=== PATIENT | female | born 1970 | race Two or more races ===

== ENCOUNTER 2022-03-20 08:12 | Emergency (ER) | payer MEDICAID, OTHER ==
[~2022-03-20] VITALS: Ht 160 cm; Wt 63.5 kg
[2022-03-20 09:11] VITALS: BP 174/86
== END 2022-03-20 11:41 | disposition home or self-care (01) ==
LOC: ER 08:12
DX: T16.1XXA Foreign body in right ear, initial encounter (principal); X58.XXXA Exposure to other specified factors, initial encounter; Y93.89 Activity, other specified; Y92.89 Other specified places as the place of occurrence of the external cause; Y99.8 Other external cause status

== ENCOUNTER 2024-07-26 19:12 | Emergency (ER) | payer OTHER ==
[~2024-07-26] VITALS: Ht 144.8 cm; Wt 60.1 kg
[~2024-07-26 19:12] MED LIST: ACET500T58 PO; ALBU108A5 IN; BENZ100C19 PO; LORA-483 GT
[2024-07-27] VITALS: BP 151/65; PULSE 61; RESP 20; TEMP 97.5; O2SAT 99
[2024-07-27] MEDS ORDERED: CEFD300C2 PO (00:30)
[2024-07-27] MEDS ORDERED: METH4PAK PO (00:30)
== END 2024-07-27 00:38 | disposition home or self-care (01) ==
LOC: ER 19:12
DX: J01.00 Acute maxillary sinusitis, unspecified (principal); Z79.899 Other long term (current) drug therapy

== ENCOUNTER 2024-10-04 06:14 | Inpatient (IN) | payer OTHER ==
[~2024-10-04] VITALS: Ht 152.4 cm; Wt 62.5 kg
[~2024-10-04 06:14] MED LIST changes: +CEFD300C2 PO; +METH4PAK PO
--- NOTE | 2024-10-04 06:50 | ED.PDOC ---
GI ASSESSMENT HPI Comments 53Y F with PMHx gallstones presents to ED for chief complaint epigastric abd pain x4-5days. Pt states pain begins at rt flank and now radiates to abd. Pt experienced n/v yesterday. Pain began hours after eating. Pt states her urine is orange and eye sclera have become mildly yellow. Pt denies alcohol, illicit drug, and tobacco use. No known allergies. Chief Complaint: Abdominal Pain Time Seen by MD: 06:24 Reviewed Notes: Medications, Allergies Allergies: Coded Allergies: NO KNOWN ALLERGIES (Unverified , 03/20/22) Home Meds Active Scripts Methylprednisolone (Medrol Dosepak) 4 Mg Rayray, 4 MG PO UD for 6 Days, #21 TAB UAD Prov:ASMITA ORTIZ [facility] 07/27/24 Cefdinir (Cefdinir) 300 Mg Cap, 1 CAP PO BID for 7 Days, #14 CAP Prov:ANGELASMITA [facility] 07/27/24 Albuterol Sulfate (Albuterol Sulfate Hfa) 108 Mcg/Act Aer, 108 MCG IN Q4HP PRN, #1 AER Prov:SAMARA VIVEROS [facility] 02/25/23 Benzonatate (Tessalon Perles) 100 Mg Cap, 1 CAP PO TID, #21 CAP Prov:SAMARA VIVEROS [facility] 02/25/23 Loratadine (CLARITIN TABLET) 10 Mg Tb, 10 MG GT DAILY for 15 Days, #15 TAB Prov:SAMARA VIVEROS [facility] 02/25/23 Acetaminophen (Acetaminophen) 500 Mg Tab, 500 MG PO Q4HP PRN, #30 TAB Prov:SAMARA VIVEROS [facility] 02/25/23 Information Source: Patient Mode of Arrival: Ambulatory Timing: Days Duration: Since onset Quality: Sharp Vomitus: Watery Stool: Brown Severity: Mild Recent: None Recent Hx of: None Pain Location: Epigastric Modifying Factors: Nothing Associated sign and symptoms: Nausea, Vomiting, Abdominal Pain Past Medical History PAST MEDICAL HISTORY: Gallstones Surgical History: Denies all surgeries CRIMINALIST History: No Pertinent CRIMINALIST History Family History Family History: Reviewed,noncontributory to illness, Unknown Social History Smoker: Non-Smoker Alcohol: Denies ETOH Use Drugs: Denies Drug Use Lives In: Home Constitutional: denies: chills, diaphoresis, fatigue, fever, malaise, sweats, weakness, others EENTM: denies: blurred vision, double vision, ear bleeding, ear discharge, ear drainage, ear pain, ear ringing, eye pain, eye redness, hearing loss, mouth pain, mouth swelling, nasal discharge, nose bleeding, nose congestion, nose pain, photophobia, tearing, throat pain, throat swelling, voice changes, others Respiratory: denies: cough, hemoptysis, orthopnea, SOB at rest, shortness of breath, SOB with excertion, stridor, wheezing, others Cardiovascular: denies: chest pain, dizzy spells, diaphoresis, Dyspnea on exertion, edema, irregular heart beat, left arm pain, lightheadedness, palpitations, PND, syncope, others Gastrointestinal: reports: abdominal pain, nausea, vomiting; denies: abdomen distended, blood streaked bowels, constipated, diarrhea, dysphagia, difficulty swallowing, hematemesis, melena, poor appetite, poor fluid intake, rectal bleeding, rectal pain, others Genitourinary: reports: flank pain, others (orange urine); denies: abnormal vagina bleeding, burning, dyspareunia, dysuria, frequency, hematuria, incontinence, pain, , vagina discharge, urgency Neurological: denies: dizziness, fainting, headache, left sided numbness, left sided weakness, numbness, paresthesia, pre-existing deficit, right sided numbness, right sided weakness, seizure, speech problems, tingling, tremors, weakness, others Musculoskeletal: denies: back pain, gout, joint pain, joint swelling, muscle pain, muscle stiffness, neck pain, others Integumetry: denies: bruises, change in color, change in hair/nails, dryness, laceration, lesions, lumps, rash, wounds, others Allergic/Immunocompromised: denies: Difficulty Healing, Frequent Infections, Hives, Itching, others Hematologic/Lymphatic: denies: anemia, blood clots, easy bleeding, easy bruising, swollen glands, others Endocrine: denies: excessive hunger, excessive sweating, excessive thirst, excessive urination, flushing, intolerance to cold, intolerance to heat, unexplained weight gain, unexplained weight loss, others Psychiatric: denies: anxiety, bipolar disorder, depression, hopeless, panic disorder, schizophrenia, sleepless, suicidal, others All Other Systems: Reviewed and Negative Physical Exam General Appearance: No Apparent Distress, Normal HEENT: Pharynx Normal, Scleral Icterus (L), Scleral Icterus (R), TMs Normal Neck: Full Range of Motion, Non-Tender, Normal, Normal Inspection Respiratory: Chest Non-Tender, Lungs Clear, No Accessory Muscle Use, No Respiratory Distress, Normal Breath Sounds Cardiovascular: No Edema, No JVD, No Murmur, No Gallop, Normal Peripheral Pulses, Regular Rate/Rhythm Breast Exam: Deferred Gastrointestinal: No Organomegaly, Non Tender, No Pulsatile Mass, Normal Bowel Sounds, Soft Genitalia: Deferred Pelvic: Deferred Rectal: Deferred Extremities: No calf tenderness, Normal capillary refill, Normal inspection, Normal range of motion, Non-tender, No pedal edema Musculoskeletal : Apperance: Normal Neurologic: Alert, long term acute care registered nurse II-XII nml as Tested, No Motor Deficits, Normal Affect, Normal Mood, No Sensory Deficits Cerebellar Function: Normal Reflexes: Normal Skin: Dry, Normal Color, Warm Lymphatic: No Adenopathy Was a procedure done? Was a procedure done?: No GI differential Dx Differential Diagnosis: Cholangitis, Cholecystitis, Pancreatitis, Mass, Other (choledocholithiasis, biliary obstruction,) X-Ray, Labs, Meds, VS Vital Signs Date Time Temp Pulse Resp B/P (MAP) Pulse Ox O2 Delivery O2 Flow Rate FiO2 10/04/24 07:49 60 16 99 Room Air* 0 21 10/04/24 07:45 97.7 60 16 141/71 (94) 99 97.7 10/04/24 06:25 98.7 65 18 145/84 (104) 96 Lab Test 10/04/24 06:53 10/04/24 06:27 Range/Units White Blood Count 4.7 4.4-10.8 10^3/uL Red Blood Count 5.09 4.0-5.20 10^6/uL Hemoglobin 14.7 12.2-16.2 g/dL Hematocrit 42.9 36.0-46.0 % Mean Corpuscular Volume 84.3 80.0-100.0 fL Mean Corpuscular Hemoglobin 28.9 28.0-32.0 pg Mean Corpuscular Hemoglobin Concent 34.3 32.0-36.0 g/dL Red Cell Distribution Width 13.6 11.8-14.3 % Platelet Count 239 140-450 10^3/uL Mean Platelet Volume 9.3 6.9-10.8 fL Neutrophils (%) (Auto) 66.4 37.0-80.0 % Lymphocytes (%) (Auto) 25.5 10.0-50.0 % Monocytes (%) (Auto) 6.5 0.0-12.0 % Eosinophils (%) (Auto) 1.2 0.0-7.0 % Basophils (%) (Auto) 0.4 0.0-2.0 % Neutrophils # (Auto) 3.1 1.6-8.6 10 ^3/uL Lymphocytes # (Auto) 1.2 0.4-5.4 10 ^3/uL Monocytes # (Auto) 0.3 0-1.3 10 ^3/uL Eosinophils # (Auto) 0.1 0-0.8 10 ^3/uL Basophils # (Auto) 0 0-0.2 10 ^3/uL Nucleated Red Blood Cells 0.1 % Sodium Level 139 136-145 mmol/L Potassium Level 3.7 3.5-5.1 mmol/L Chloride Level 104 98-107 mmol/L Carbon Dioxide Level 26 20-31 mmol/L Anion Gap 9 5-15 Blood Urea Nitrogen 13 9-23 mg/dL Creatinine 1.02 0.550-1.02 mg/dL Glomerular Filtration Rate Calc 66 >90 mL/min BUN/Creatinine Ratio 12.7 10.0-20.0 Serum Glucose 111 H 74-106 mg/dL Calcium Level 10.5 H 8.7-10.4 mg/dL Total Bilirubin 3.1 H 0.2-1.0 mg/dL Aspartate Amino Transferase (AST) 324 H 13-40 U/L Alanine Aminotransferase (ALT) 923 H 7-40 U/L Alkaline Phosphatase 247 H 46-116 U/L Total Protein 8.2 5.7-8.2 g/dL Albumin 5.1 H 3.2-4.8 g/dL Lipase 278 H 12-53 U/L Beta HCG, Quantitative < 1.5 L 1.5-4.2 mIU/mL Urine Color [place] H Yellow Urine Clarity Ex.turbid Clear Urine pH 5.5 5.0-9.0 Urine Specific [place] 1.016 1.001-1.035 Urine Protein Trace H Negative Urine Ketones 1+ H Negative Urine Blood Negative Negative /uL Urine Nitrite Negative Negative Urine Bilirubin 1+ H Negative Urine Urobilinogen Normal Negative mg/dL Urine Leukocyte Esterase 2+ Negative /uL Urine RBC None seen 0 - 4 /hpf Urine WBC None seen 0 - 5 /hpf Urine Squamous Epithelial Cells Few <5 /hpf Urine Bacteria None seen None Seen /hpf Urine Glucose Normal Normal mg/dL [facility] [id number] [id number] Ph: [phone] DIAGNOSTIC IMAGING Diagnostic Imaging Report : [id number] Signed PATIENT: ANNAMARIA VALDEZACCT: [id number] UNIT: [id number] : 1970 LOC: ER ROOM / BED: / AGE / SEX: 53 / F ADM STATUS: REG ER SERVICE 6 ORDERING PHYSICIAN: WSETHA DELATORRE MD PROCEDURE(s): GBUS - GALLBLADDER REASON: ruq pain ORDER NUMBER(s): [id number], ACCESSION NUMBER(s): [id number] INDICATION: Pain. TECHNIQUE: Multiple real-time sonographic images of the abdomen were obtained. COMPARISON: None FINDINGS: The liver is increased in echogenicity. The liver measures 14.5 cm. No intrahepatic biliary ductal dilatation is noted. The gallbladder wall measures 0.2 cm and is unremarkable. Multiple gallstones. The common duct measures 0.6 cm and is unremarkable. No pericholecystic fluid is noted. Negative sonographic delacruz's sign. The right kidney measures 12.1 cm. No hydronephrosis. There are right renal cysts, the largest measuring 3.8 cm. The left kidney measures 11.1 cm. There are left renal cysts, the largest measuring 2.3 cm. No hydronephrosis. The pancreas is not well visualized due to obscuration from bowel gas. The visualized portions of the IVC and aorta are grossly unremarkable. IMPRESSION: 1. Multiple gallstones. No sonographic evidence of acute cholecystitis. 2. Hepatic steatosis. 3. Bilateral renal cysts. ATED BY: VANNESA BARRAGAN MD DICTATED DATE/TIME: 10/04/24807 SIGNED BY: VANNESA BARRAGAN MD SIGNED DATE/TIME: 10/04/24807 CC: Time of 1ST Reevaluation: 06:54 Reevaluation 1ST: Unchanged Time of 2ND Reevaluation: 08:54 Reevaluation 2ND: Improved Consultation: Other (hospitalist) Patient Education/Counseling: Diagnosis, Treatment, Prognosis, Need For Follow Up Family Education/Counseling: No Family Present Additional Information pt is jaundiced, with elevated LFTs, bili, and mild lipase elevation. us does not show cholecystitis, nor dilated ducts, but she will need a MRCP and admission to assess for possibly a stone that might have passed. i spoke to Dr Sotomayor and Marianne Ball Departure 1 Departure Time of Disposition: 08:58 Impression: Primary Impression: Cholelithiasis Qualified Codes: K80.20 - Calculus of gallbladder without cholecystitis wit hout obstruction Additional Impressions: Jaundice UTI (urinary tract infection) Qualified Codes: N30.00 - Acute cystitis without hematuria Transaminitis Disposition: ADMITTED INPATIENT Admit to: Med Surg Condition: Stable Critical Care Note Critical Care Time?: Yes (55 min-critical care time only) Critical care comment: due to real concerns for pt's condition deteriorating, the patient's care required my highest level of attention and prepareness to intervene. i assessed this patient, formulated a plan of care, communicated with medical personnel,reveiwed data and results,andconversed with senior staff consultant, reassessed the patient's condition and response to treatments. [facility] interactions and does not include any procedures Stability Stability form required: No I personally scribed for SWETHA DELATORRE MD (NAILA) on 10/04/24 at 06:50. Electronically submitted by Marcela Cotter ([employer]). I personally scribed for SWETHA DELATORRE MD (NAILA) on 10/04/24 at 06:50. Electronically submitted by Marcela Cotter ([employer]). I personally scribed for SWETHA DELATORRE MD (NAILA) on 10/04/24 at 08:18. Electronically submitted by Marcela Cotter ([employer]). SWETHA DELATORRE MD Oct 04, 2024 06:50
[2024-10-04 07:15] LABS: Basophils # (auto) 0 10 ^3/uL (0-0.2); Basophils % (auto) 0.4 % (0.0-2.0); Eosinophils # (auto) 0.1 10 ^3/uL (0-0.8); Eosinophils % (auto) 1.2 % (0.0-7.0); Hematocrit 42.9 % (36.0-46.0); Hemoglobin 14.7 g/dL (12.2-16.2); Lymphocytes # (auto) 1.2 10 ^3/uL (0.4-5.4); Lymphocytes % (auto) 25.5 % (10.0-50.0); Mean Corpuscular Hemoglobin 28.9 pg (28.0-32.0); Mean Corpuscular Hgb Conc. 34.3 g/dL (32.0-36.0); Mean Corpuscular Volume 84.3 fL (80.0-100.0); Monocytes # (auto) 0.3 10 ^3/uL (0-1.3); Monocytes % (auto) 6.5 % (0.0-12.0); Neutrophils # (auto) 3.1 10 ^3/uL (1.6-8.6); Neutrophils % (auto) 66.4 % (37.0-80.0); Nucleated Red Blood Cells % 0.1 %; Platelet Count (auto) 239 10^3/uL (140-450); Red Blood Cells 5.09 10^6/uL (4.0-5.20); Red Cell Distribution Width 13.6 % (11.8-14.3); White Blood Cell 4.7 10^3/uL (4.4-10.8)
[2024-10-04 07:32] LABS: Alanine Aminotransferase 923 U/L (7-40); Albumin 5.1 g/dL (3.2-4.8); Alkaline Phosphatase 247 U/L (46-116); Anion Gap 9 (5-15); Aspartate Aminotransferase 324 U/L (13-40); BUN/Creatinine Ratio 12.7 (10.0-20.0); Bilirubin, Total 3.1 mg/dL (0.2-1.0); Blood Urea Nitrogen 13 mg/dL (9-23); Calcium 10.5 mg/dL (8.7-10.4); Carbon Dioxide 26 mmol/L (20-31); Chloride 104 mmol/L (98-107); Glucose 111 mg/dL (74-106); Lipase 278 U/L (12-53); Potassium 3.7 mmol/L (3.5-5.1); Sodium 139 mmol/L (136-145); Total Protein 8.2 g/dL (5.7-8.2)
[2024-10-04 07:49] VITALS: PULSE 60; RESP 16; O2SAT 99
[2024-10-04 07:58] LABS: Urine Bacteria None Seen /hpf (None Seen); Urine WBC None Seen /hpf (0 - 5)
--- NOTE | 2024-10-04 08:11 | DVH ---
INDICATION: Pain. TECHNIQUE: Multiple real-time sonographic images of the abdomen were obtained. COMPARISON: None FINDINGS: The liver is increased in echogenicity. The liver measures 14.5 cm. No intrahepatic biliar y ductal dilatation is noted. The gallbladder wall measures 0.2 cm and is unremarkable. Multiple gallstones. The common duct adarsh sures 0.6 cm and is unremarkable. No pericholecystic fluid is noted. Negative sonographic delacruz's s ign. The right kidney measures 12.1 cm. No hydronephrosis. There are right renal cysts, the largest measu ring 3.8 cm. The left kidney measures 11.1 cm. There are left renal cysts, the largest measuring 2.3 cm. No hydronephrosis. The pancreas is not well visualized due to obscuration from bowel gas. The visualized portions of the IVC and aorta are grossly unremarkable. IMPRESSION: 1. Multiple gallstones. No sonographic evidence of acute cholecystitis. 2. Hepatic steatosis. 3. Bilateral renal cysts.
[2024-10-04 08:16] LABS: Urine Blood Negative /uL (Negative); Urine Clarity Ex.Turbid (Clear); Urine Color Orange (Yellow); Urine Protein, UAD TRACE (Negative); Urine Specific Gravity 1.016 (1.001-1.035); Urine Urobilinogen Normal (Negative); Urine pH 5.5 (5.0-9.0)
[2024-10-04 09:05] VITALS: PULSE 53; RESP 20; O2SAT 96
[2024-10-04] MEDS: cefTRIAXone 1GM/50ML D5W 50 ML IV ONE (09:46)
--- NOTE | 2024-10-04 10:40 | DVH ---
CHEST RADIOGRAPH Indication:sob Technique: Single frontal view of the chest was obtained COMPARISON: None FINDINGS: Lines and Tubes: None Lungs: Clear Pleura: No effusion. No pneumothorax. Cardiomediastinal contours: Unremarkable Bones: Unremarkable IMPRESSION: No acute disease.
[2024-10-04] MEDS: SODIUM CHLORIDE 0.9% 1,000 ML IV SCH (11:30)
[2024-10-04] MEDS ORDERED: HYDROcodone-ACET 5/325MG TAB PO PRN (11:30)
[2024-10-04] MEDS ORDERED: MORPHINE SULFATE INJ 2 MG/ml SYRG IV PRN (11:30)
--- NOTE | 2024-10-04 11:30 | DVHHP2 ---
Admitting Diagnosis: Abd pain History of Present Illness 53 y/o female patient with h/o gallstones presents with c/o epigastric pain for the past 4-5 days. Patient also c/o nausea and vomiting. She also reports ye llowing of her eyes. While in the emergency department the patient was evaluated by the provider, As per provider: Labs, vital signs, and imagining monitored. Patient will be admitted for further evaluation and treatment. I discussed admission with the patient/family and is in agreement to treatment plan. Allergies: Coded Allergies: NO KNOWN ALLERGIES (Unverified , 03/20/22) Home Meds Active Scripts Methylprednisolone (Medrol Dosepak) 4 Mg Rayray, 4 MG PO UD for 6 Days, #21 TAB UAD Prov:ASMITA ORTIZ [facility] 07/27/24 Cefdinir (Cefdinir) 300 Mg Cap, 1 CAP PO BID for 7 Days, #14 CAP Prov:ASMITA ORTIZ [facility] 07/27/24 Albuterol Sulfate (Albuterol Sulfate Hfa) 108 Mcg/Act Aer, 108 MCG IN Q4HP PRN, #1 AER Prov:SAMARA VIVEROS [facility] 02/25/23 Benzonatate (Tessalon Perles) 100 Mg Cap, 1 CAP PO TID, #21 CAP Prov:SAMARA VIVEROS [facility] 02/25/23 Loratadine (CLARITIN TABLET) 10 Mg Tb, 10 MG GT DAILY for 15 Days, #15 TAB Prov:SAMARA VIVEROS [facility] 02/25/23 Acetaminophen (Acetaminophen) 500 Mg Tab, 500 MG PO Q4HP PRN, #30 TAB Prov:SAMARA VIVEROS [facility] 02/25/23 Reported Medications Lisinopril (Lisinopril) 20 Mg Tab, 1 TAB PO DAILY 10/04/24 Current Medications Current Medications Medications (Trade) Dose Ordered Sig/Omid Route PRN Reason Start Time Stop Time Status Last Admin Sodium Chloride 1,000 ml @ 60 mls/hr [id number] IV 10/04/24 11:30 Acetaminophen/ Hydrocodone Bitart ([place] 5/325MG Tab) 1 tab Q4HP PRN PO MODERATE PAIN (4-6 PAIN SCALE) 10/04/24 11:30 Enoxaparin Sodium (Lovenox) 40 mg DAILY SC 10/05/24 10:00 Morphine Sulfate 2 mg Q4HPRN PRN IV SEVERE PAIN (7-10 PAIN SCALE) 10/04/24 11:30 Pantoprazole Sodium (Protonix) 40 mg DAILY IV 10/04/24 11:45 10/04/24 11:47 Hydralazine HCl (Apresoline Injection) 10 mg Q6HP PRN IV SBP>150 10/04/24 11:45 Ondansetron HCl (Zofran) 4 mg Q4HP PRN IV NAUSEA / VOMITING 10/04/24 11:45 Lisinopril (Zestril Tablet) 20 mg DAILY PO 10/05/24 10:00 Review of Systems Constitutional: denies chills, denies fever, denies malaise Eyes: denies eye pain, denies vision change ENT: denies ear pain, denies headache, denies nasal congestion, denies painful swallowing, denies voice change Cardiovascular: denies chest pain, denies edema, denies orthopnea, denies palpitations, denies paroxysmal nocturnal dyspnea Respiratory: denies cough, denies shortness of breath Gastrointestinal: denies constipation, denies diarrhea, denies nausea, denies vomiting Genitourinary: denies dysuria, denies frequent urination, denies urethral discharge Musculoskeletal: denies back pain, denies joint pain, denies muscle pain Skin: denies bruising, denies itching, denies rash Neurological: denies focal weakness, denies headache, denies sensory changes Psychiatric: denies anxiety, denies depression Endocrine: denies polydipsia, denies polyuria Hematologic/Lymphatic: denies easy bleeding, denies easy bruising, denies enlarged lymph nodes Allergic/Immunologic: denies allergy, denies hives Vital Signs Vital Signs Date Time Temp Pulse Resp B/P (MAP) Pulse Ox O2 Delivery O2 Flow Rate FiO2 10/04/24 16:56 97.9 55 16 145/71 (95) 96 97.9 10/04/24 09:05 Room Air* 0 21 Physical Exam General Appearance: alert, no distress HEENT: EOMI, PERRLA, normal external inspect of ears, no icterus, no nasal drainage Neck: no carotid bruit, no jugular venous distention (JVD), no lymphadenopathy Chest: normal thorax Respiratory: clear to auscultation, normal air movement Cardiovascular: regular rate and rhythm, no diastolic murmur, no jugular venous distention (JVD), no rub, no systolic murmur Abdominal: soft, no hepatomegaly, no mass, no splenomegaly, no tenderness Genitourinary: grossly normal external Musculoskeletal: no joint tenderness, no swelling Extremities: normal pulses, no calf tenderness, no clubbing, no cyanosis, no edema Skin: no bruising, no jaundice, no rash Neurological: alert, No focal deficit Results Labs Test 10/04/24 06:53 10/04/24 06:27 Range/Units White Blood Count 4.7 4.4-10.8 10^3/uL Red Blood Count 5.09 4.0-5.20 10^6/uL Hemoglobin 14.7 12.2-16.2 g/dL Hematocrit 42.9 36.0-46.0 % Mean Corpuscular Volume 84.3 80.0-100.0 fL Mean Corpuscular Hemoglobin 28.9 28.0-32.0 pg Mean Corpuscular Hemoglobin Concent 34.3 32.0-36.0 g/dL Red Cell Distribution Width 13.6 11.8-14.3 % Platelet Count 239 140-450 10^3/uL Mean Platelet Volume 9.3 6.9-10.8 fL Neutrophils (%) (Auto) 66.4 37.0-80.0 % Lymphocytes (%) (Auto) 25.5 10.0-50.0 % Monocytes (%) (Auto) 6.5 0.0-12.0 % Eosinophils (%) (Auto) 1.2 0.0-7.0 % Basophils (%) (Auto) 0.4 0.0-2.0 % Neutrophils # (Auto) 3.1 1.6-8.6 10 ^3/uL Lymphocytes # (Auto) 1.2 0.4-5.4 10 ^3/uL Monocytes # (Auto) 0.3 0-1.3 10 ^3/uL Eosinophils # (Auto) 0.1 0-0.8 10 ^3/uL Basophils # (Auto) 0 0-0.2 10 ^3/uL Nucleated Red Blood Cells 0.1 % Sodium Level 139 136-145 mmol/L Potassium Level 3.7 3.5-5.1 mmol/L Chloride Level 104 98-107 mmol/L Carbon Dioxide Level 26 20-31 mmol/L Anion Gap 9 5-15 Blood Urea Nitrogen 13 9-23 mg/dL Creatinine 1.02 0.550-1.02 mg/dL Glomerular Filtration Rate Calc 66 >90 mL/min BUN/Creatinine Ratio 12.7 10.0-20.0 Serum Glucose 111 H 74-106 mg/dL Calcium Level 10.5 H 8.7-10.4 mg/dL Total Bilirubin 3.1 H 0.2-1.0 mg/dL Aspartate Amino Transferase (AST) 324 H 13-40 U/L Alanine Aminotransferase (ALT) 923 H 7-40 U/L Alkaline Phosphatase 247 H 46-116 U/L Total Protein 8.2 5.7-8.2 g/dL Albumin 5.1 H 3.2-4.8 g/dL Lipase 278 H 12-53 U/L Beta HCG, Quantitative < 1.5 L 1.5-4.2 mIU/mL Urine Color [place] H Yellow Urine Clarity Ex.turbid Clear Urine pH 5.5 5.0-9.0 Urine Specific [place] 1.016 1.001-1.035 Urine Protein Trace H Negative Urine Ketones 1+ H Negative Urine Blood Negative Negative /uL Urine Nitrite Negative Negative Urine Bilirubin 1+ H Negative Urine Urobilinogen Normal Negative mg/dL Urine Leukocyte Esterase 2+ Negative /uL Urine RBC None seen 0 - 4 /hpf Urine WBC None seen 0 - 5 /hpf Urine Squamous Epithelial Cells Few <5 /hpf Urine Bacteria None seen None Seen /hpf Urine Glucose Normal Normal mg/dL Plan 1. Epigastric pain Monitor, GI consult, IV fluids 2. Jaundice Monitor 3. Elevated liver enzymes Monitor, daily labs 4. Gallstones Monitor, surgical consult, clear liquid diet, MRCP 5. Benign essential HTN Monitor, antihypertensives Plan discussed with: Patient, Other KONRAD PALM NP Oct 04, 2024 11:30
[2024-10-04] MEDS ORDERED: LISI20TA56 PO (11:34)
[2024-10-04] MEDS ORDERED: hydrALAZINE HCL 20 MG/ML VL IV PRN (11:45)
[2024-10-04] MEDS ORDERED: ONDANSETRON HCL 4 MG/2 ML VIAL IV PRN (11:45)
[2024-10-04] MEDS: PANTOPRAZOLE 40 MG/10 ML VIAL INJ IV SCH (11:47)
--- NOTE | 2024-10-04 15:00 | DVH ---
MRI Abdomen, MRCP without IV Contrast Exam Date: 10/04/2024 01:42 PM Comparison: Ultrasound dated 10/04/2024 History: elevated liver enzymes Technique: Multisequence multiplanar MRI images were obtained of the abomen. MRCP including 3D SPACE, Radial 2D slabs and SPACE 3D MIP images Findings: Liver: The liver is normal in size without focal lesions. Normal liver contour. Numerous mostly subc entimeter hepatic cysts. Spleen: Unremarkable. Pancreas: The pancreas is normal in appearance without focal lesions. Gallbladder and ducts: Cholelithiasis. No intra or extrahepatic biliary duct dilation. 0.4 cm fillin g defect in the distal common bile duct suggestive of a stone. The pancreatic duct is within normal limits. Adrenal glands: Unremarkable. Kidneys: Normal enhancement without suspicious lesions or hydronephrosis. Numerous bilateral renal cy sts. Visualized bowel: Grossly unremarkable. Vasculature: Unremarkable. Lymphadenopathy: No evidence for lymphadenopathy. Ascites: Absent. Musculoskeletal: Bone marrow signal is normal. IMPRESSION: Cholelithiasis without secondary signs of cholecystitis. 0.4 cm stone in the distal common bile duct. Recommend further evaluation with ERCP.
--- NOTE | 2024-10-04 15:50 | DVHINCON2 ---
Date of service: Oct 04, 2024 Allergies: Coded Allergies: NO KNOWN ALLERGIES (Unverified , 03/20/22) Home Meds Active Scripts Methylprednisolone (Medrol Dosepak) 4 Mg Rayray, 4 MG PO UD for 6 Days, #21 TAB UAD Prov:ASMITA ORTIZ TECHNICAL INSTRUCTOR COURSE DEVELOPER 07/27/24 Cefdinir (Cefdinir) 300 Mg Cap, 1 CAP PO BID for 7 Days, #14 CAP Prov:ASMITA ORTIZ [facility] 07/27/24 Albuterol Sulfate (Albuterol Sulfate Hfa) 108 Mcg/Act Aer, 108 MCG IN Q4HP PRN, #1 AER Prov:SAMARA VIVEROS PAC 02/25/23 Benzonatate (Tessalon Perles) 100 Mg Cap, 1 CAP PO TID, #21 CAP Prov:SAMARA VIVEROS [facility] 02/25/23 Loratadine (CLARITIN TABLET) 10 Mg Tb, 10 MG GT DAILY for 15 Days, #15 TAB Prov:SAMARA VIVEROS [facility] 02/25/23 Acetaminophen (Acetaminophen) 500 Mg Tab, 500 MG PO Q4HP PRN, #30 TAB Prov:SAMARA VIVEROS [facility] 02/25/23 Reported Medications Lisinopril (Lisinopril) 20 Mg Tab, 1 TAB PO DAILY 10/04/24 Current Medications Current Medications Medications (Trade) Dose Ordered Sig/Omid Route PRN Reason Start Time Stop Time Status Last Admin Sodium Chloride 1,000 ml @ 60 mls/hr [id number] IV 10/04/24 11:30 Acetaminophen/ Hydrocodone Bitart ([place] 5/325MG Tab) 1 tab Q4HP PRN PO MODERATE PAIN (4-6 PAIN SCALE) 10/04/24 11:30 Enoxaparin Sodium (Lovenox) 40 mg DAILY SC 10/05/24 10:00 Morphine Sulfate 2 mg Q4HPRN PRN IV SEVERE PAIN (7-10 PAIN SCALE) 10/04/24 11:30 Pantoprazole Sodium (Protonix) 40 mg DAILY IV 10/04/24 11:45 10/04/24 11:47 Hydralazine HCl (Apresoline Injection) 10 mg Q6HP PRN IV SBP>150 10/04/24 11:45 Ondansetron HCl (Zofran) 4 mg Q4HP PRN IV NAUSEA / VOMITING 10/04/24 11:45 Lisinopril (Zestril Tablet) 20 mg DAILY PO 10/05/24 10:00 Vital Signs Vital Signs Date Time Temp Pulse Resp B/P (MAP) Pulse Ox O2 Delivery O2 Flow Rate FiO2 10/04/24 12:00 60 10/04/24 12:00 17 122/73 (89) 96 10/04/24 09:05 Room Air* 0 21 10/04/24 07:45 97.7 97.7 Labs/Diagnostic Data Labs Test 10/04/24 06:53 10/04/24 06:27 Range/Units White Blood Count 4.7 4.4-10.8 10^3/uL Red Blood Count 5.09 4.0-5.20 10^6/uL Hemoglobin 14.7 12.2-16.2 g/dL Hematocrit 42.9 36.0-46.0 % Mean Corpuscular Volume 84.3 80.0-100.0 fL Mean Corpuscular Hemoglobin 28.9 28.0-32.0 pg Mean Corpuscular Hemoglobin Concent 34.3 32.0-36.0 g/dL Red Cell Distribution Width 13.6 11.8-14.3 % Platelet Count 239 140-450 10^3/uL Mean Platelet Volume 9.3 6.9-10.8 fL Neutrophils (%) (Auto) 66.4 37.0-80.0 % Lymphocytes (%) (Auto) 25.5 10.0-50.0 % Monocytes (%) (Auto) 6.5 0.0-12.0 % Eosinophils (%) (Auto) 1.2 0.0-7.0 % Basophils (%) (Auto) 0.4 0.0-2.0 % Neutrophils # (Auto) 3.1 1.6-8.6 10 ^3/uL Lymphocytes # (Auto) 1.2 0.4-5.4 10 ^3/uL Monocytes # (Auto) 0.3 0-1.3 10 ^3/uL Eosinophils # (Auto) 0.1 0-0.8 10 ^3/uL Basophils # (Auto) 0 0-0.2 10 ^3/uL Nucleated Red Blood Cells 0.1 % Sodium Level 139 136-145 mmol/L Potassium Level 3.7 3.5-5.1 mmol/L Chloride Level 104 98-107 mmol/L Carbon Dioxide Level 26 20-31 mmol/L Anion Gap 9 5-15 Blood Urea Nitrogen 13 9-23 mg/dL Creatinine 1.02 0.550-1.02 mg/dL Glomerular Filtration Rate Calc 66 >90 mL/min BUN/Creatinine Ratio 12.7 10.0-20.0 Serum Glucose 111 H 74-106 mg/dL Calcium Level 10.5 H 8.7-10.4 mg/dL Total Bilirubin 3.1 H 0.2-1.0 mg/dL Aspartate Amino Transferase (AST) 324 H 13-40 U/L Alanine Aminotransferase (ALT) 923 H 7-40 U/L Alkaline Phosphatase 247 H 46-116 U/L Total Protein 8.2 5.7-8.2 g/dL Albumin 5.1 H 3.2-4.8 g/dL Lipase 278 H 12-53 U/L Beta HCG, Quantitative < 1.5 L 1.5-4.2 mIU/mL Urine Color [place] H Yellow Urine Clarity Ex.turbid Clear Urine pH 5.5 5.0-9.0 Urine Specific [place] 1.016 1.001-1.035 Urine Protein Trace H Negative Urine Ketones 1+ H Negative Urine Blood Negative Negative /uL Urine Nitrite Negative Negative Urine Bilirubin 1+ H Negative Urine Urobilinogen Normal Negative mg/dL Urine Leukocyte Esterase 2+ Negative /uL Urine RBC None seen 0 - 4 /hpf Urine WBC None seen 0 - 5 /hpf Urine Squamous Epithelial Cells Few <5 /hpf Urine Bacteria None seen None Seen /hpf Urine Glucose Normal Normal mg/dL Assessment [id number] R/O AC CHOLECYSTITIS LFT ELEVATED MRCP CBD STONE CONSIDER ERCP AT HIGHER LEVEL OF CARE LAP/OPEN AMADO BASED ON ONGOING EVAL INDICATED Plan discussed with: Patient EVGENY KERNS MD Oct 04, 2024 15:50
--- NOTE | 2024-10-04 19:28 | DVHINCON2 ---
Date of service: Oct 04, 2024 Referring Physician Marianne Ball Reason for Consultation Elevated liver enzymes History of Present Illness 53Y F with PMHx gallstones presents to ED for chief complaint epigastric abd pain x4-5days. Pt states pain begins at rt flank and now radiates to abd. Pt experienced n/v yesterday. Pain began hours after eating. Pt states her urine is orange and eye sclera have become mildly yellow. Pt denies alcohol, illicit drug, and tobacco use. Patient had an MRI which showed gallstones without evidence of cholecystitis how ever there is a suspected 4 mm CBD stone Past Medical History Hypertension Gallstones Allergies: Coded Allergies: NO KNOWN ALLERGIES (Unverified , 03/20/22) Home Meds Active Scripts Methylprednisolone (Medrol Dosepak) 4 Mg Rayray, 4 MG PO UD for 6 Days, #21 TAB UAD Prov:ASMITA ORTIZ RECEIVING SPECIALIST 07/27/24 Cefdinir (Cefdinir) 300 Mg Cap, 1 CAP PO BID for 7 Days, #14 CAP Prov:ASMITA ORTIZ RECEIVING SPECIALIST 07/27/24 Albuterol Sulfate (Albuterol Sulfate Hfa) 108 Mcg/Act Aer, 108 MCG IN Q4HP PRN, #1 AER Prov:SAMARA VIVEROS PAC 02/25/23 Benzonatate (Tessalon Perles) 100 Mg Cap, 1 CAP PO TID, #21 CAP Prov:SAMARA VIVEROS PAC 02/25/23 Loratadine (CLARITIN TABLET) 10 Mg Tb, 10 MG GT DAILY for 15 Days, #15 TAB Prov:SAMARA VIVEROS [facility] 02/25/23 Acetaminophen (Acetaminophen) 500 Mg Tab, 500 MG PO Q4HP PRN, #30 TAB Prov:SAMARA VIVEROS [facility] 02/25/23 Reported Medications Lisinopril (Lisinopril) 20 Mg Tab, 1 TAB PO DAILY 10/04/24 Current Medications Current Medications Medications (Trade) Dose Ordered Sig/Omid Route PRN Reason Start Time Stop Time Status Last Admin Sodium Chloride 1,000 ml @ 60 mls/hr [id number] IV 10/04/24 11:30 Acetaminophen/ Hydrocodone Bitart ([place] 5/325MG Tab) 1 tab Q4HP PRN PO MODERATE PAIN (4-6 PAIN SCALE) 10/04/24 11:30 Enoxaparin Sodium (Lovenox) 40 mg DAILY SC 10/05/24 10:00 Morphine Sulfate 2 mg Q4HPRN PRN IV SEVERE PAIN (7-10 PAIN SCALE) 10/04/24 11:30 Pantoprazole Sodium (Protonix) 40 mg DAILY IV 10/04/24 11:45 10/04/24 11:47 Hydralazine HCl (Apresoline Injection) 10 mg Q6HP PRN IV SBP>150 10/04/24 11:45 Ondansetron HCl (Zofran) 4 mg Q4HP PRN IV NAUSEA / VOMITING 10/04/24 11:45 Lisinopril (Zestril Tablet) 20 mg DAILY PO 10/05/24 10:00 Vital Signs Vital Signs Date Time Temp Pulse Resp B/P (MAP) Pulse Ox O2 Delivery O2 Flow Rate FiO2 10/04/24 19:00 61 16 140/73 (95) 97 10/04/24 16:56 97.9 97.9 10/04/24 09:05 Room Air* 0 21 Physical Exam Hemodynamically stable Full PE deferred Labs/Diagnostic Data Labs Test 10/04/24 06:53 10/04/24 06:27 Range/Units White Blood Count 4.7 4.4-10.8 10^3/uL Red Blood Count 5.09 4.0-5.20 10^6/uL Hemoglobin 14.7 12.2-16.2 g/dL Hematocrit 42.9 36.0-46.0 % Mean Corpuscular Volume 84.3 80.0-100.0 fL Mean Corpuscular Hemoglobin 28.9 28.0-32.0 pg Mean Corpuscular Hemoglobin Concent 34.3 32.0-36.0 g/dL Red Cell Distribution Width 13.6 11.8-14.3 % Platelet Count 239 140-450 10^3/uL Mean Platelet Volume 9.3 6.9-10.8 fL Neutrophils (%) (Auto) 66.4 37.0-80.0 % Lymphocytes (%) (Auto) 25.5 10.0-50.0 % Monocytes (%) (Auto) 6.5 0.0-12.0 % Eosinophils (%) (Auto) 1.2 0.0-7.0 % Basophils (%) (Auto) 0.4 0.0-2.0 % Neutrophils # (Auto) 3.1 1.6-8.6 10 ^3/uL Lymphocytes # (Auto) 1.2 0.4-5.4 10 ^3/uL Monocytes # (Auto) 0.3 0-1.3 10 ^3/uL Eosinophils # (Auto) 0.1 0-0.8 10 ^3/uL Basophils # (Auto) 0 0-0.2 10 ^3/uL Nucleated Red Blood Cells 0.1 % Sodium Level 139 136-145 mmol/L Potassium Level 3.7 3.5-5.1 mmol/L Chloride Level 104 98-107 mmol/L Carbon Dioxide Level 26 20-31 mmol/L Anion Gap 9 5-15 Blood Urea Nitrogen 13 9-23 mg/dL Creatinine 1.02 0.550-1.02 mg/dL Glomerular Filtration Rate Calc 66 >90 mL/min BUN/Creatinine Ratio 12.7 10.0-20.0 Serum Glucose 111 H 74-106 mg/dL Calcium Level 10.5 H 8.7-10.4 mg/dL Total Bilirubin 3.1 H 0.2-1.0 mg/dL Aspartate Amino Transferase (AST) 324 H 13-40 U/L Alanine Aminotransferase (ALT) 923 H 7-40 U/L Alkaline Phosphatase 247 H 46-116 U/L Total Protein 8.2 5.7-8.2 g/dL Albumin 5.1 H 3.2-4.8 g/dL Lipase 278 H 12-53 U/L Beta HCG, Quantitative < 1.5 L 1.5-4.2 mIU/mL Urine Color [place] H Yellow Urine Clarity Ex.turbid Clear Urine pH 5.5 5.0-9.0 Urine Specific [place] 1.016 1.001-1.035 Urine Protein Trace H Negative Urine Ketones 1+ H Negative Urine Blood Negative Negative /uL Urine Nitrite Negative Negative Urine Bilirubin 1+ H Negative Urine Urobilinogen Normal Negative mg/dL Urine Leukocyte Esterase 2+ Negative /uL Urine RBC None seen 0 - 4 /hpf Urine WBC None seen 0 - 5 /hpf Urine Squamous Epithelial Cells Few <5 /hpf Urine Bacteria None seen None Seen /hpf Urine Glucose Normal Normal mg/dL IMPRESSION: 1. Multiple gallstones. No sonographic evidence of acute cholecystitis. 2. Hepatic steatosis. 3. Bilateral renal cysts. Problems(with codes): (1) Choledocholithiasis (2) Cholelithiasis (3) Jaundice (4) UTI (urinary tract infection) (5) Transaminitis Plan/Recommendation Plan Suspected cholelithiasis with choledocholithiasis and biliary colic Surgical consult appreciated Clear liquid diet Monitor labs Referral to higher level of care for ERCP Plan discussed with: Other (ER Nurse) LISA KERNS MD Oct 04, 2024 19:28
[2024-10-04 21:00] VITALS: BP 143/70; PULSE 56; RESP 18; TEMP 98; O2SAT 94
[2024-10-04 22:05] VITALS: BP 143/70; PULSE 56; RESP 18; TEMP 98; O2SAT 94
--- NOTE | 2024-10-04 22:20 | DVHINCON2 ---
DATE OF CONSULTATION: 10/04/2024 HISTORY OF PRESENT ILLNESS: This patient is 53 years old, coming in with right upper quadrant pain, but now feeling much better. No nausea, vomiting. No constipation, diarrhea. No hematemesis, melena. No bleeding per rectum. PAST MEDICAL HISTORY: Hypertension. No diabetes. PAST SURGICAL HISTORY: Nothing significant. PHYSICAL EXAMINATION: VITAL SIGNS: Afebrile, stable signs. HEENT: With no evidence of pallor, cyanosis, or jaundice. NECK: Supple, nontender with no thyromegaly, lymphadenopathy. CHEST AND LUNGS: Clear. HEART: Within normal limits. ABDOMEN: Soft, minimally tender. No rebound. EXTREMITIES: Unremarkable. NEUROLOGIC: Intact. CLINICAL IMPRESSION: Rule out acute cholecystitis. Liver enzymes are elevated. CBD stones are present. PLAN: Will be to consider a preoperative ERCP and higher level of care. Following that, she can be considered for laparoscopic, possible open cholecystectomy. Benefits, risks discussed and a consent obtained based upon her ongoing evaluation. MD JUANITA Bo/EUN/BOB TID: [id number] RECEIPT: [id number] cc: Flash Beavers MD
[2024-10-05 00:56] VITALS: BP 117/84; PULSE 53; RESP 19; TEMP 98.1; O2SAT 97
[2024-10-05 05:00] VITALS: BP 129/72; PULSE 56; RESP 18; TEMP 98.1; O2SAT 97
[2024-10-05 09:00] VITALS: BP 131/68; PULSE 55; RESP 16; TEMP 98.4; O2SAT 95
[2024-10-05] MEDS: ENOXAPARIN SOD 40 MG/0.4 ML SYRINGE SC SCH (09:13)
[2024-10-05] MEDS: LISINOPRIL 20 MG TAB PO SCH (09:13)
--- NOTE | 2024-10-05 12:44 | DVHPN2 ---
Progress Note - Dictate Date Seen: Oct 05, 2024 Medical Necessity Reason Pt with a Central, PICC or Fol: No vital signs Vital Sign Date Time Temp Pulse Resp B/P (MAP) Pulse Ox O2 Delivery O2 Flow Rate FiO2 10/05/24 09:13 131/68 10/05/24 09:00 98.4 55 16 95 98.4 10/05/24 07:50 Room Air* 0 21 Total Intake and Output 10/04/24 10/04/24 10/05/24 15:00 23:00 07:00 Intake Total 50 ml 350 ml Balance 50 ml 350 ml medications Current Medications Medications Dose Ordered Sig/Omid Route Start Time Stop Time Status Last Admin Dose Admin Sodium Chloride 1,000 ml @ 60 mls/hr [id number] IV 10/04/24 11:30 10/05/24 05:49 60 MLS/HR Acetaminophen/ Hydrocodone Bitart 1 tab Q4HP PRN PO 10/04/24 11:30 Enoxaparin Sodium 40 mg DAILY SC 10/05/24 10:00 10/05/24 09:13 40 MG Morphine Sulfate 2 mg Q4HPRN PRN IV 10/04/24 11:30 Pantoprazole Sodium 40 mg DAILY IV 10/04/24 11:45 10/05/24 09:12 40 MG Hydralazine HCl 10 mg Q6HP PRN IV 10/04/24 11:45 Ondansetron HCl 4 mg Q4HP PRN IV 10/04/24 11:45 Lisinopril 20 mg DAILY PO 10/05/24 10:00 10/05/24 09:13 20 MG objective General Appearance: alert, no distress HEENT: EOMI, PERRLA, normal external inspect of ears, no icterus, no nasal drainage Neck: no carotid bruit, no jugular venous distention (JVD), no lymphadenopathy Chest: normal thorax Respiratory: clear to auscultation, normal air movement Cardiovascular: regular rate and rhythm, no diastolic murmur, no jugular venous distention (JVD), no rub, no systolic murmur Abdominal: soft, no hepatomegaly, no mass, no splenomegaly, no tenderness Genitourinary: grossly normal external Musculoskeletal: no joint tenderness, no swelling Extremities: normal pulses, no calf tenderness, no clubbing, no cyanosis, no edema Skin: no bruising, no jaundice, no rash Neurological: alert, No focal deficit laboratory and microbiology Laboratory Tests 10/04/24 06:53 Test 10/04/24 06:53 Range/Units Serum Glucose 111 H 74-106 mg/dL Problem List 1. Epigastric pain Monitor, GI consult, IV fluids 2. Jaundice Monitor 3. Elevated liver enzymes Monitor, daily labs 4. Gallstones Monitor, surgical consult, clear liquid diet, MRCP 5. Benign essential HTN Monitor, antihypertensives Assessment/Plan Subjective Patient is awake and alert. Objective Patient was admitted on 10/04/2024 for abdominal pain. Patient was found to be jaundiced and her liver enzymes were elevated. Patient's only medical history is high blood pressure and she takes lisinopril. MRCP was done and it does show an approximate 4 mm stone in her common bile duct. ERCP is unable to be done at this facility. Patient may also need a possible left laparoscopic cholecystectomy. Patient was seen by GI as well as general surgery. They are recommending higher level of care in order to do these procedures. Patient wants to AMA and is going to wait one more day before deciding if they will leave AMA tomorrow. Plan Continue current treatment. Pending decision for AMA tomorrow. Plan discussed with: Patient, Other KONRAD PALM NP Oct 05, 2024 12:44
[2024-10-05 13:00] VITALS: BP 131/67; PULSE 54; RESP 16; TEMP 98.1; O2SAT 97
[2024-10-05 14:24] LABS: INR 0.98 (0.9-1.15); Prothrombin Time 10.4 sec (9.3-11.8)
[2024-10-05 14:29] LABS: Alanine Aminotransferase 582 U/L (7-40); Albumin 4.4 g/dL (3.2-4.8); Alkaline Phosphatase 210 U/L (46-116); Calcium 10.1 mg/dL (8.7-10.4); Chloride 104 mmol/L (98-107); Triglycerides 257 mg/dL (< 150)
[2024-10-05 14:30] LABS: Anion Gap 7 (5-15); Aspartate Aminotransferase 125 U/L (13-40); BUN/Creatinine Ratio 10.6 (10.0-20.0); Bilirubin, Total 1.4 mg/dL (0.2-1.0); Blood Urea Nitrogen 11 mg/dL (9-23); Carbon Dioxide 26 mmol/L (20-31); Cholesterol 292 mg/dL (< 200); Glucose 178 mg/dL (74-106); HDL Cholesterol 43 mg/dL (40-59); LDL Cholesterol 201 mg/dL (< 100); Potassium 4.2 mmol/L (3.5-5.1); Sodium 137 mmol/L (136-145); Total Protein 7.6 g/dL (5.7-8.2)
[2024-10-05 14:48] LABS: Lipase 100 U/L (12-53)
[2024-10-05 17:00] VITALS: BP 159/79; PULSE 59; RESP 16; TEMP 98.2; O2SAT 100
--- NOTE | 2024-10-05 19:33 | DVHPN2 ---
Progress Note - Dictate Date Seen: Oct 05, 2024 Medical Necessity Reason Pt with a Central, PICC or Fol: No Subjective Patient is tolerating a diet There was no nausea vomiting or abdominal pain vital signs Vital Sign Date Time Temp Pulse Resp B/P (MAP) Pulse Ox O2 Delivery O2 Flow Rate FiO2 10/05/24 17:00 98.2 59 16 159/79 (105) 100 98.2 10/05/24 07:50 Room Air* 0 21 Total Intake and Output 10/04/24 10/04/24 10/05/24 15:00 23:00 07:00 Intake Total 50 ml 350 ml Balance 50 ml 350 ml medications Current Medications Medications Dose Ordered Sig/Omid Route Start Time Stop Time Status Last Admin Dose Admin Sodium Chloride 1,000 ml @ 60 mls/hr [id number] IV 10/04/24 11:30 10/05/24 05:49 60 MLS/HR Acetaminophen/ Hydrocodone Bitart 1 tab Q4HP PRN PO 10/04/24 11:30 Enoxaparin Sodium 40 mg DAILY SC 10/05/24 10:00 10/05/24 09:13 40 MG Morphine Sulfate 2 mg Q4HPRN PRN IV 10/04/24 11:30 Pantoprazole Sodium 40 mg DAILY IV 10/04/24 11:45 10/05/24 09:12 40 MG Hydralazine HCl 10 mg Q6HP PRN IV 10/04/24 11:45 Ondansetron HCl 4 mg Q4HP PRN IV 10/04/24 11:45 Lisinopril 20 mg DAILY PO 10/05/24 10:00 10/05/24 09:13 20 MG objective General Appearance: alert, no distress HEENT: EOMI, PERRLA, normal external inspect of ears, no icterus, no nasal drainage Neck: no carotid bruit, no jugular venous distention (JVD), no lymphadenopathy Chest: normal thorax Respiratory: clear to auscultation, normal air movement Cardiovascular: regular rate and rhythm, no diastolic murmur, no jugular venous distention (JVD), no rub, no systolic murmur Abdominal: soft, no hepatomegaly, no mass, no splenomegaly, no tenderness Genitourinary: grossly normal external Musculoskeletal: no joint tenderness, no swelling Extremities: normal pulses, no calf tenderness, no clubbing, no cyanosis, no edema Skin: no bruising, no jaundice, no rash Neurological: alert, No focal deficit laboratory and microbiology Laboratory Tests 10/05/24 13:35 10/04/24 06:53 Test 10/05/24 13:35 Range/Units Serum Glucose 178 H 74-106 mg/dL MRCP IMPRESSION: Cholelithiasis without secondary signs of cholecystitis. 0.4 cm stone in the distal common bile duct. Recommend further evaluation with ERCP. Problems(with codes): (1) Choledocholithiasis (2) Transaminitis (3) UTI (urinary tract infection) (4) Jaundice (5) Cholelithiasis Prognosis Plan Liver enzymes and lipase are trending down Continue to monitor labs Surgical f/u appreciated Pt needs referral for ERCP Lap gwen subsequently Plan discussed with: Patient, Other LISA KERNS MD Oct 05, 2024 19:33
[2024-10-05 21:00] VITALS: BP 150/78; PULSE 60; RESP 14; TEMP 98.1; O2SAT 98
[2024-10-06 01:00] VITALS: BP 138/57; PULSE 67; RESP 16; TEMP 97.9; O2SAT 94
[2024-10-06 04:56] VITALS: BP 115/68; PULSE 52; RESP 14; TEMP 98; O2SAT 96
[2024-10-06 08:54] VITALS: BP 143/74; PULSE 61; RESP 16; TEMP 97.6; O2SAT 99
[2024-10-06 13:00] VITALS: BP 141/67; PULSE 60; RESP 16; TEMP 97.3; O2SAT 99
--- NOTE | 2024-10-06 13:44 | DVHPN2 ---
Progress Note - Dictate Date Seen: Oct 06, 2024 Medical Necessity Reason Pt with a Central, PICC or Fol: No vital signs Vital Sign Date Time Temp Pulse Resp B/P (MAP) Pulse Ox O2 Delivery O2 Flow Rate FiO2 10/06/24 13:00 97.3 60 16 141/67 (91) 99 97.3 10/06/24 08:27 Room Air* 0 21 Total Intake and Output 10/05/24 10/05/24 10/06/24 14:59 22:59 06:59 Intake Total 500 ml 500 ml Balance 500 ml 500 ml medications Current Medications Medications Dose Ordered Sig/Omid Route Start Time Stop Time Status Last Admin Dose Admin Sodium Chloride 1,000 ml @ 60 mls/hr [id number] IV 10/04/24 11:30 10/06/24 13:28 60 MLS/HR Acetaminophen/ Hydrocodone Bitart 1 tab Q4HP PRN PO 10/04/24 11:30 Enoxaparin Sodium 40 mg DAILY SC 10/05/24 10:00 10/05/24 09:13 40 MG Morphine Sulfate 2 mg Q4HPRN PRN IV 10/04/24 11:30 Pantoprazole Sodium 40 mg DAILY IV 10/04/24 11:45 10/06/24 09:32 40 MG Hydralazine HCl 10 mg Q6HP PRN IV 10/04/24 11:45 Ondansetron HCl 4 mg Q4HP PRN IV 10/04/24 11:45 Lisinopril 20 mg DAILY PO 10/05/24 10:00 10/06/24 09:31 20 MG objective General Appearance: alert, no distress HEENT: EOMI, PERRLA, normal external inspect of ears, no icterus, no nasal drainage Neck: no carotid bruit, no jugular venous distention (JVD), no lymphadenopathy Chest: normal thorax Respiratory: clear to auscultation, normal air movement Cardiovascular: regular rate and rhythm, no diastolic murmur, no jugular venous distention (JVD), no rub, no systolic murmur Abdominal: soft, no hepatomegaly, no mass, no splenomegaly, no tenderness Genitourinary: grossly normal external Musculoskeletal: no joint tenderness, no swelling Extremities: normal pulses, no calf tenderness, no clubbing, no cyanosis, no edema Skin: no bruising, no jaundice, no rash Neurological: alert, No focal deficit laboratory and microbiology Laboratory Tests 10/05/24 13:35 10/04/24 06:53 Test 10/05/24 13:35 Range/Units Serum Glucose 178 H 74-106 mg/dL Problem List 1. Epigastric pain Monitor, GI consult, IV fluids 2. Jaundice Monitor 3. Elevated liver enzymes Monitor, daily labs 4. Gallstones Monitor, surgical consult, clear liquid diet, MRCP 5. Benign essential HTN Monitor, antihypertensives Assessment/Plan Subjective: Patient is awake and alert. Objective: The patient was admitted for jaundice and elevated liver enzymes. Diagnosed with cholelithiasis. Her AST and ALT are downtrending as well as T-eloina, with total bilirubin now at 1.4. She has a history of hypertension. UA is negative, and a transfer to a higher level of care is pending for an IRCP and potential laparoscopic cholecystectomy. Plan Continue current treatment. Continue monitoring. Plan discussed with: Patient, Other KONRAD PALM NP Oct 06, 2024 13:44
[2024-10-06 16:41] VITALS: BP 142/71; PULSE 60; RESP 18; TEMP 97.5; O2SAT 100
--- NOTE | 2024-10-06 19:55 | DVHPN2 ---
Progress Note - Dictate Date Seen: Oct 06, 2024 Medical Necessity Reason Pt with a Central, PICC or Fol: No Subjective Patient is tolerating a diet There was no nausea vomiting or abdominal pain Liver enzymes are trending now Patient has high cholesterol values vital signs Vital Sign Date Time Temp Pulse Resp B/P (MAP) Pulse Ox O2 Delivery O2 Flow Rate FiO2 10/06/24 16:41 97.5 60 18 142/71 (94) 100 97.5 10/06/24 08:27 Room Air* 0 21 Total Intake and Output 10/05/24 10/05/24 10/06/24 15:00 23:00 07:00 Intake Total 500 ml 500 ml Balance 500 ml 500 ml medications Current Medications Medications Dose Ordered Sig/Omid Route Start Time Stop Time Status Last Admin Dose Admin Sodium Chloride 1,000 ml @ 60 mls/hr [id number] IV 10/04/24 11:30 10/06/24 13:28 60 MLS/HR Acetaminophen/ Hydrocodone Bitart 1 tab Q4HP PRN PO 10/04/24 11:30 Enoxaparin Sodium 40 mg DAILY SC 10/05/24 10:00 10/05/24 09:13 40 MG Morphine Sulfate 2 mg Q4HPRN PRN IV 10/04/24 11:30 Pantoprazole Sodium 40 mg DAILY IV 10/04/24 11:45 10/06/24 09:32 40 MG Hydralazine HCl 10 mg Q6HP PRN IV 10/04/24 11:45 Ondansetron HCl 4 mg Q4HP PRN IV 10/04/24 11:45 Lisinopril 20 mg DAILY PO 10/05/24 10:00 10/06/24 09:31 20 MG objective General Appearance: alert, no distress HEENT: EOMI, PERRLA, normal external inspect of ears, no icterus, no nasal drainage Neck: no carotid bruit, no jugular venous distention (JVD), no lymphadenopathy Chest: normal thorax Respiratory: clear to auscultation, normal air movement Cardiovascular: regular rate and rhythm, no diastolic murmur, no jugular venous distention (JVD), no rub, no systolic murmur Abdominal: soft, no hepatomegaly, no mass, no splenomegaly, no tenderness Genitourinary: grossly normal external Musculoskeletal: no joint tenderness, no swelling Extremities: normal pulses, no calf tenderness, no clubbing, no cyanosis, no edema Skin: no bruising, no jaundice, no rash Neurological: alert, No focal deficit laboratory and microbiology Laboratory Tests 10/05/24 13:35 10/04/24 06:53 Test 10/05/24 13:35 Range/Units Serum Glucose 178 H 74-106 mg/dL Problems(with codes): (1) Choledocholithiasis (2) Transaminitis (3) Jaundice (4) Cholelithiasis Prognosis Plan Patient is awaiting possible transfer to [facility] for ERCP once authorization approved Repeat labs in the morning Advance diet as tolerated Supportive care Dietary Evaluation Review Comments: Incorrect height, BMI is higher than 26.5, hypercholesterolemia, advance diet to 2gNa, Lo fat Lo cholesterol after her procedures. Expected Outcomes/Goals: Gradual weight loss,controlled HLD. Plan discussed with: Patient LISA KERNS MD Oct 06, 2024 19:55
[2024-10-06 21:00] VITALS: BP 143/76; PULSE 51; RESP 20; TEMP 97.5; O2SAT 98
[2024-10-07] VITALS (7 sets, daily range): BP systolic 99–159; BP diastolic 54–78; PULSE 58–62; RESP 16–19; TEMP 97.3–98.2; O2SAT 95–100
[2024-10-07 14:17] LABS: Basophils # (auto) 0 10 ^3/uL (0-0.2); Basophils % (auto) 0.4 % (0.0-2.0); Eosinophils # (auto) 0.1 10 ^3/uL (0-0.8); Eosinophils % (auto) 1.5 % (0.0-7.0); Hematocrit 40.1 % (36.0-46.0); Hemoglobin 13.4 g/dL (12.2-16.2); Lymphocytes # (auto) 1.6 10 ^3/uL (0.4-5.4); Lymphocytes % (auto) 39.9 % (10.0-50.0); Mean Corpuscular Hemoglobin 28.5 pg (28.0-32.0); Mean Corpuscular Hgb Conc. 33.4 g/dL (32.0-36.0); Mean Corpuscular Volume 85.2 fL (80.0-100.0); Monocytes # (auto) 0.3 10 ^3/uL (0-1.3); Monocytes % (auto) 7.7 % (0.0-12.0); Neutrophils % (auto) 50.5 % (37.0-80.0); Nucleated Red Blood Cells % 0.1 %; Platelet Count (auto) 209 10^3/uL (140-450); Red Cell Distribution Width 13.5 % (11.8-14.3)
[2024-10-07 14:27] LABS: Alanine Aminotransferase 397 U/L (7-40); Albumin 4.6 g/dL (3.2-4.8); Alkaline Phosphatase 179 U/L (46-116); Anion Gap 6 (5-15); Aspartate Aminotransferase 61 U/L (13-40); BUN/Creatinine Ratio 7.1 (10.0-20.0); Blood Urea Nitrogen 6 mg/dL (9-23); Carbon Dioxide 28 mmol/L (20-31); Chloride 107 mmol/L (98-107); Glucose 143 mg/dL (74-106); Potassium 3.9 mmol/L (3.5-5.1); Sodium 141 mmol/L (136-145); Total Protein 7.5 g/dL (5.7-8.2)
--- NOTE | 2024-10-07 14:27 | DVHPN2 ---
Progress Note - Dictate Date Seen: Oct 07, 2024 Medical Necessity Reason Pt with a Central, PICC or Fol: No Subjective Patient is tolerating a diet There was no nausea vomiting or abdominal pain Liver enzymes are trending now Patient has high cholesterol values vital signs Vital Sign Date Time Temp Pulse Resp B/P (MAP) Pulse Ox O2 Delivery O2 Flow Rate FiO2 10/07/24 13:00 97.3 58 16 154/69 (97) 95 97.3 10/07/24 08:25 Room Air* 0 98 21 Total Intake and Output 10/06/24 10/06/24 10/07/24 15:00 23:00 07:00 Intake Total 1000 ml 1100 ml 960 ml Balance 1000 ml 1100 ml 960 ml medications Current Medications Medications Dose Ordered Sig/Omid Route Start Time Stop Time Status Last Admin Dose Admin Sodium Chloride 1,000 ml @ 60 mls/hr [id number] IV 10/04/24 11:30 10/07/24 11:57 60 MLS/HR Acetaminophen/ Hydrocodone Bitart 1 tab Q4HP PRN PO 10/04/24 11:30 Enoxaparin Sodium 40 mg DAILY SC 10/05/24 10:00 10/05/24 09:13 40 MG Morphine Sulfate 2 mg Q4HPRN PRN IV 10/04/24 11:30 Pantoprazole Sodium 40 mg DAILY IV 10/04/24 11:45 10/07/24 10:41 40 MG Hydralazine HCl 10 mg Q6HP PRN IV 10/04/24 11:45 Ondansetron HCl 4 mg Q4HP PRN IV 10/04/24 11:45 Lisinopril 20 mg DAILY PO 10/05/24 10:00 10/07/24 10:42 20 MG objective General Appearance: alert, no distress HEENT: EOMI, PERRLA, normal external inspect of ears, no icterus, no nasal drainage Neck: no carotid bruit, no jugular venous distention (JVD), no lymphadenopathy Chest: normal thorax Respiratory: clear to auscultation, normal air movement Cardiovascular: regular rate and rhythm, no diastolic murmur, no jugular venous distention (JVD), no rub, no systolic murmur Abdominal: soft, no hepatomegaly, no mass, no splenomegaly, no tenderness Genitourinary: grossly normal external Musculoskeletal: no joint tenderness, no swelling Extremities: normal pulses, no calf tenderness, no clubbing, no cyanosis, no edema Skin: no bruising, no jaundice, no rash Neurological: alert, No focal deficit laboratory and microbiology Laboratory Tests 10/07/24 13:40 Test 10/07/24 13:40 Range/Units Serum Glucose Pending Problems(with codes): (1) Choledocholithiasis (2) Transaminitis (3) Jaundice Prognosis Plan Patient was awaiting transfer for ERCP but authorization has not been obtained Repeat CMP and liver enzymes pending today If the patient's liver enzymes continue to drop then potentially patient could be discharged home We can arrange outpatient elective MRCP and ERCP in the future Dietary Evaluation Review Comments: Incorrect height, BMI is higher than 26.5, hypercholesterolemia, advance diet to 2gNa, Lo fat Lo cholesterol after her procedures. Expected Outcomes/Goals: Gradual weight loss,controlled HLD. Plan discussed with: Patient LISA KERNS MD Oct 07, 2024 14:27
--- NOTE | 2024-10-07 18:10 | DVHDS2 ---
Discharge Summary Date of Admission Oct 04, 2024 at 11:23 Date of Discharge: Oct 07, 2024 Labs/Diagnostic Data: Laboratory Results Test 10/07/24 13:40 10/05/24 13:35 10/04/24 06:53 10/04/24 06:27 White Blood Count 4.0 10^3/uL (4.4-10.8) Red Blood Count 4.70 10^6/uL (4.0-5.20) Hemoglobin 13.4 g/dL (12.2-16.2) Hematocrit 40.1 % (36.0-46.0) Mean Corpuscular Volume 85.2 fL (80.0-100.0) Mean Corpuscular Hemoglobin 28.5 pg (28.0-32.0) Mean Corpuscular Hemoglobin Concent 33.4 g/dL (32.0-36.0) Red Cell Distribution Width 13.5 % (11.8-14.3) Platelet Count 209 10^3/uL (140-450) Mean Platelet Volume 9.9 fL (6.9-10.8) Neutrophils (%) (Auto) 50.5 % (37.0-80.0) Lymphocytes (%) (Auto) 39.9 % (10.0-50.0) Monocytes (%) (Auto) 7.7 % (0.0-12.0) Eosinophils (%) (Auto) 1.5 % (0.0-7.0) Basophils (%) (Auto) 0.4 % (0.0-2.0) Neutrophils # (Auto) 2.0 10 ^3/uL (1.6-8.6) Lymphocytes # (Auto) 1.6 10 ^3/uL (0.4-5.4) Monocytes # (Auto) 0.3 10 ^3/uL (0-1.3) Eosinophils # (Auto) 0.1 10 ^3/uL (0-0.8) Basophils # (Auto) 0 10 ^3/uL (0-0.2) Nucleated Red Blood Cells 0.1 % Sodium Level 141 mmol/L (136-145) Potassium Level 3.9 mmol/L (3.5-5.1) Chloride Level 107 mmol/L (98-107) Carbon Dioxide Level 28 mmol/L (20-31) Anion Gap 6 (5-15) Blood Urea Nitrogen 6 mg/dL (9-23) Creatinine 0.85 mg/dL (0.550-1.02) Glomerular Filtration Rate Calc 83 mL/min (>90) BUN/Creatinine Ratio 7.1 (10.0-20.0) Serum Glucose 143 mg/dL (74-106) Calcium Level 10.0 mg/dL (8.7-10.4) Total Bilirubin 1.0 mg/dL (0.2-1.0) Aspartate Amino Transferase (AST) 61 U/L (13-40) Alanine Aminotransferase (ALT) 397 U/L (7-40) Alkaline Phosphatase 179 U/L (46-116) Total Protein 7.5 g/dL (5.7-8.2) Albumin 4.6 g/dL (3.2-4.8) Prothrombin Time 10.4 sec (9.3-11.8) Prothrombin Time INR 0.98 (0.9-1.15) Hemoglobin A1c 5.7 % A1C (<5.7) Triglycerides Level 257 mg/dL (< 150) Cholesterol Level 292 mg/dL (< 200) LDL Cholesterol 201 mg/dL (< 100) HDL Cholesterol 43 mg/dL (40-59) Lipase 100 U/L (12-53) Beta HCG, Quantitative < 1.5 mIU/mL (1.5-4.2) Urine Color [place] (Yellow) Urine Clarity Ex.turbid (Clear) Urine pH 5.5 (5.0-9.0) Urine Specific [place] 1.016 (1.001-1.035) Urine Protein Trace (Negative) Urine Ketones 1+ (Negative) Urine Blood Negative /uL (Negative) Urine Nitrite Negative (Negative) Urine Bilirubin 1+ (Negative) Urine Urobilinogen Normal mg/dL (Negative) Urine Leukocyte Esterase 2+ /uL (Negative) Urine RBC None seen /hpf (0 - 4) Urine WBC None seen /hpf (0 - 5) Urine Squamous Epithelial Cells Few /hpf (<5) Urine Bacteria None seen /hpf (None Seen) Urine Glucose Normal mg/dL (Normal) Other Laboratory Tests 10/07/24 13:40 Brief Hx & Hospital Course: 53 y/o female patient with h/o gallstones presents with c/o epigastric pain for the past 4-5 days. Patient also c/o nausea and vomiting. She also reports yellowing of her eyes. While in the emergency department the patient was evaluated by the provider, As per provider: Labs, vital signs, and imagining monitored. Patient was admitted for abdominal pain and jaundice. Patient had elevated liver enzymes ERCP showed choledocholithiasis as well as cholelithiasis. No acute cholecystitis was found. Patient was seen by GI as well as general surgery they did recommend a tertiary care center transfer due to need of ERCP and possible laparoscopic cholecystectomy. Patient was accepted by physician at [facility] and she will transfer for continuation of care. The patient received proper medical treatment and medications. Vital signs, Imaging and Laboratory Work was monitored daily. All consults recommendations were followed as provided. There were no complaints or new complaints upon discharge, all questions and concerns were answered. Patient was advised to return to the ER or call 911 if any headaches, dizziness, shortness of breath, chest pain, bleeding, fevers, or worsening of medical condition. Patient/Family was counseled about treatment plan, medications, possible side effects, patient verbalized understanding. All questions were answered to the best of my ability. The patient symptoms improved and they are okay to be DC. Condition at Discharge: Stable Final Diagnosis/Problems List HLOC, ERCP POSSIBLE LAP CHOLECYSTECTOMY DUE TO JAUNDICE AND ELEVATED LIVER ENZYME, STONE IN COMMON BILE DUCT. Discharge Disposition: Acute Care Facility Discharge Instruct/Medications Diet: See Comment Activity: See Comment Follow Up/Referral: HLOC Discharge Statement: "Patient was advised to return to the ER or call 911 if any headaches, dizziness, shortness of breath, chest pain, abdominal pain, bleeding, fevers, or worsening of medical condition. Patient was counseled about treatment plan, medications, possible side effects, patientverbalized understanding. All questions were answered to the best of my ability. This discharge took greater then 30 minutes in planning, reviewing documentation, counseling the patient, and discussing with other team members." ASSESSMENT ASSESSMENT Assessment HLOC, ERCP POSSIBLE LAP CHOLECYSTECTOMY DUE TO JAUNDICE AND ELEVATED LIVER ENZYME, STONE IN COMMON BILE DUCT. KONRAD PALM NP Oct 07, 2024 18:10
[2024-10-08 01:00] VITALS: BP 142/66; PULSE 56; RESP 20; TEMP 97.5; O2SAT 99
[2024-10-08 05:00] VITALS: BP 101/68; PULSE 75; RESP 20; TEMP 98.2; O2SAT 99
[2024-10-08 08:00] VITALS: PULSE 65; RESP 16; O2SAT 98
[2024-10-08 09:00] VITALS: BP 141/60; PULSE 59; RESP 16; TEMP 98.3; O2SAT 97
--- NOTE | 2024-10-08 09:04 | DVHPN2 ---
Progress Note - Dictate Date Seen: Oct 08, 2024 Medical Necessity Reason Pt with a Central, PICC or Fol: No Subjective Patient is tolerating a diet There was no nausea vomiting or abdominal pain Liver enzymes are trending now Patient has high cholesterol values vital signs Vital Sign Date Time Temp Pulse Resp B/P (MAP) Pulse Ox O2 Delivery O2 Flow Rate FiO2 10/08/24 08:46 141/60 10/08/24 05:00 98.2 75 20 99 98.2 10/07/24 20:00 Room Air* 0 21 Total Intake and Output 10/07/24 10/07/24 10/08/24 14:59 22:59 06:59 Intake Total 800 ml 360 ml Balance 800 ml 360 ml medications Current Medications Medications Dose Ordered Sig/Omid Route Start Time Stop Time Status Last Admin Dose Admin Sodium Chloride 1,000 ml @ 60 mls/hr [id number] IV 10/04/24 11:30 10/07/24 11:57 60 MLS/HR Acetaminophen/ Hydrocodone Bitart 1 tab Q4HP PRN PO 10/04/24 11:30 Enoxaparin Sodium 40 mg DAILY SC 10/05/24 10:00 10/05/24 09:13 40 MG Morphine Sulfate 2 mg Q4HPRN PRN IV 10/04/24 11:30 Pantoprazole Sodium 40 mg DAILY IV 10/04/24 11:45 10/08/24 08:47 40 MG Hydralazine HCl 10 mg Q6HP PRN IV 10/04/24 11:45 Ondansetron HCl 4 mg Q4HP PRN IV 10/04/24 11:45 Lisinopril 20 mg DAILY PO 10/05/24 10:00 10/08/24 08:46 20 MG objective General Appearance: alert, no distress HEENT: EOMI, PERRLA, normal external inspect of ears, no icterus, no nasal drainage Neck: no carotid bruit, no jugular venous distention (JVD), no lymphadenopathy Chest: normal thorax Respiratory: clear to auscultation, normal air movement Cardiovascular: regular rate and rhythm, no diastolic murmur, no jugular venous distention (JVD), no rub, no systolic murmur Abdominal: soft, no hepatomegaly, no mass, no splenomegaly, no tenderness Genitourinary: grossly normal external Musculoskeletal: no joint tenderness, no swelling Extremities: normal pulses, no calf tenderness, no clubbing, no cyanosis, no edema Skin: no bruising, no jaundice, no rash Neurological: alert, No focal deficit laboratory and microbiology Laboratory Tests 10/07/24 13:40 Test 10/07/24 13:40 Range/Units Serum Glucose 143 H 74-106 mg/dL Problems(with codes): (1) Choledocholithiasis (2) Transaminitis (3) UTI (urinary tract infection) (4) Jaundice (5) Cholelithiasis Prognosis Plan Patient apparently has been accepted at [facility] and is awaiting a bed and transportation Patient will be referred to [facility] for ERCP She will subsequently need elective laparoscopic cholecystectomy Dietary Evaluation Review Comments: Incorrect height, BMI is higher than 26.5, hypercholesterolemia, advance diet to 2gNa, Lo fat Lo cholesterol after her procedures. Expected Outcomes/Goals: Gradual weight loss,controlled HLD. Plan discussed with: Patient LISA KERNS MD Oct 08, 2024 09:04
--- NOTE | 2024-10-08 13:07 | DVHDS2 ---
Discharge Summary Date of Admission Oct 04, 2024 at 11:23 Date of Discharge: Oct 08, 2024 Labs/Diagnostic Data: Laboratory Results Test 10/07/24 13:40 10/05/24 13:35 10/04/24 06:53 10/04/24 06:27 White Blood Count 4.0 10^3/uL (4.4-10.8) Red Blood Count 4.70 10^6/uL (4.0-5.20) Hemoglobin 13.4 g/dL (12.2-16.2) Hematocrit 40.1 % (36.0-46.0) Mean Corpuscular Volume 85.2 fL (80.0-100.0) Mean Corpuscular Hemoglobin 28.5 pg (28.0-32.0) Mean Corpuscular Hemoglobin Concent 33.4 g/dL (32.0-36.0) Red Cell Distribution Width 13.5 % (11.8-14.3) Platelet Count 209 10^3/uL (140-450) Mean Platelet Volume 9.9 fL (6.9-10.8) Neutrophils (%) (Auto) 50.5 % (37.0-80.0) Lymphocytes (%) (Auto) 39.9 % (10.0-50.0) Monocytes (%) (Auto) 7.7 % (0.0-12.0) Eosinophils (%) (Auto) 1.5 % (0.0-7.0) Basophils (%) (Auto) 0.4 % (0.0-2.0) Neutrophils # (Auto) 2.0 10 ^3/uL (1.6-8.6) Lymphocytes # (Auto) 1.6 10 ^3/uL (0.4-5.4) Monocytes # (Auto) 0.3 10 ^3/uL (0-1.3) Eosinophils # (Auto) 0.1 10 ^3/uL (0-0.8) Basophils # (Auto) 0 10 ^3/uL (0-0.2) Nucleated Red Blood Cells 0.1 % Sodium Level 141 mmol/L (136-145) Potassium Level 3.9 mmol/L (3.5-5.1) Chloride Level 107 mmol/L (98-107) Carbon Dioxide Level 28 mmol/L (20-31) Anion Gap 6 (5-15) Blood Urea Nitrogen 6 mg/dL (9-23) Creatinine 0.85 mg/dL (0.550-1.02) Glomerular Filtration Rate Calc 83 mL/min (>90) BUN/Creatinine Ratio 7.1 (10.0-20.0) Serum Glucose 143 mg/dL (74-106) Calcium Level 10.0 mg/dL (8.7-10.4) Total Bilirubin 1.0 mg/dL (0.2-1.0) Aspartate Amino Transferase (AST) 61 U/L (13-40) Alanine Aminotransferase (ALT) 397 U/L (7-40) Alkaline Phosphatase 179 U/L (46-116) Total Protein 7.5 g/dL (5.7-8.2) Albumin 4.6 g/dL (3.2-4.8) Prothrombin Time 10.4 sec (9.3-11.8) Prothrombin Time INR 0.98 (0.9-1.15) Hemoglobin A1c 5.7 % A1C (<5.7) Triglycerides Level 257 mg/dL (< 150) Cholesterol Level 292 mg/dL (< 200) LDL Cholesterol 201 mg/dL (< 100) HDL Cholesterol 43 mg/dL (40-59) Lipase 100 U/L (12-53) Beta HCG, Quantitative < 1.5 mIU/mL (1.5-4.2) Urine Color [place] (Yellow) Urine Clarity Ex.turbid (Clear) Urine pH 5.5 (5.0-9.0) Urine Specific [employer] 1.016 (1.001-1.035) Urine Protein Trace (Negative) Urine Ketones 1+ (Negative) Urine Blood Negative /uL (Negative) Urine Nitrite Negative (Negative) Urine Bilirubin 1+ (Negative) Urine Urobilinogen Normal mg/dL (Negative) Urine Leukocyte Esterase 2+ /uL (Negative) Urine RBC None seen /hpf (0 - 4) Urine WBC None seen /hpf (0 - 5) Urine Squamous Epithelial Cells Few /hpf (<5) Urine Bacteria None seen /hpf (None Seen) Urine Glucose Normal mg/dL (Normal) Other Laboratory Tests 10/07/24 13:40 Brief Hx & Hospital Course: 51 y/o female patient with h/o gallstones presents with c/o epigastric pain for the past 4-5 days. Patient also c/o nausea and vomiting. She also reports yellowing of her eyes. While in the emergency department the patient was evaluated by the provider, As per provider: Labs, vital signs, and imagining monitored. Patient was admitted for abdominal pain and jaundice. Patient had elevated liver enzymes ERCP showed choledocholithiasis as well as cholelithiasis. No acute cholecystitis was found. Patient was seen by GI as well as general surgery they did recommend a tertiary care center transfer due to need of ERCP and possible laparoscopic cholecystectomy. Patient was accepted by physician at [facility] and she will transfer for continuation of care with ERCP and laparoscopic cholecystectomy. The patient received proper medical treatment and medications. Vital signs, Imaging and Laboratory Work was monitored daily. All consults recommendations were followed as provided. There were no complaints or new complaints upon discharge, all questions and concerns were answered. Patient was advised to return to the ER or call 911 if any headaches, dizziness, shortness of breath, chest pain, bleeding, fevers, or worsening of medical condition. Patient/Family was counseled about treatment plan, medications, possible side effects, patient verbalized understanding. All questions were answered to the best of my ability. The patient symptoms improved and they are okay to be DC. Condition at Discharge: Stable Final Diagnosis/Problems List HLOC, ERCP POSSIBLE LAP CHOLECYSTECTOMY DUE TO JAUNDICE AND ELEVATED LIVER ENZYME, STONE IN COMMON BILE DUCT. Discharge Disposition: Acute Care Facility Discharge Instruct/Medications Diet: See Comment Activity: See Comment Follow Up/Referral: HLOC Discharge Statement: "Patient was advised to return to the ER or call 911 if any headaches, dizziness, shortness of breath, chest pain, abdominal pain, bleeding, fevers, or worsening of medical condition. Patient was counseled about treatment plan, medications, possible side effects, patientverbalized understanding. All questions were answered to the best of my ability. This discharge took greater then 30 minutes in planning, reviewing documentation, counseling the patient, and discussing with other team members." ASSESSMENT ASSESSMENT Hospital Course 53 y/o female patient with h/o gallstones presents with c/o epigastric pain for the past 4-5 days. Patient also c/o nausea and vomiting. She also reports yellowing of her eyes. While in the emergency department the patient was evaluated by the provider, As per provider: Labs, vital signs, and imagining monitored. Patient was admitted for abdominal pain and jaundice. Patient had elevated liver enzymes ERCP showed choledocholithiasis as well as cholelithiasis. No acute cholecystitis was found. Patient was seen by GI as well as general surgery they did recommend a tertiary care center transfer due to need of ERCP and possible laparoscopic cholecystectomy. Patient was accepted by physician at [facility] and she will transfer for continuation of care. The patient received proper medical treatment and medications. Vital signs, Imaging and Laboratory Work was monitored daily. All consults recommendations were followed as provided. There were no complaints or new complaints upon discharge, all questions and concerns were answered. Patient was advised to return to the ER or call 911 if any headaches, dizziness, shortness of breath, chest pain, bleeding, fevers, or worsening of medical condition. Patient/Family was counseled about treatment plan, medications, possible side effects, patient verbalized understanding. All questions were answered to the best of my ability. The patient symptoms improved and they are okay to be DC. Assessment HLOC, ERCP POSSIBLE LAP CHOLECYSTECTOMY DUE TO JAUNDICE AND ELEVATED LIVER ENZYME, STONE IN COMMON BILE DUCT. KONRAD PALM NP Oct 08, 2024 13:06
--- NOTE | 2024-10-08 18:51 | DVHPN2 ---
Progress Note - Dictate Date Seen: Oct 07, 2024 Medical Necessity Reason Pt with a Central, PICC or Fol: No vital signs Vital Sign Date Time Temp Pulse Resp B/P (MAP) Pulse Ox O2 Delivery O2 Flow Rate FiO2 10/08/24 09:00 98.3 59 16 141/60 (87) 97 98.3 10/08/24 08:00 Room Air* 0 21 Total Intake and Output 10/07/24 10/07/24 10/08/24 15:00 23:00 07:00 Intake Total 800 ml 360 ml Balance 800 ml 360 ml objective General Appearance: alert, no distress HEENT: EOMI, PERRLA, normal external inspect of ears, no icterus, no nasal drainage Neck: no carotid bruit, no jugular venous distention (JVD), no lymphadenopathy Chest: normal thorax Respiratory: clear to auscultation, normal air movement Cardiovascular: regular rate and rhythm, no diastolic murmur, no jugular venous distention (JVD), no rub, no systolic murmur Abdominal: soft, no hepatomegaly, no mass, no splenomegaly, no tenderness Genitourinary: grossly normal external Musculoskeletal: no joint tenderness, no swelling Extremities: normal pulses, no calf tenderness, no clubbing, no cyanosis, no edema Skin: no bruising, no jaundice, no rash Neurological: alert, No focal deficit laboratory and microbiology Laboratory Tests 10/07/24 13:40 Test 10/07/24 13:40 Range/Units Serum Glucose 143 H 74-106 mg/dL Problem List 1. Epigastric pain Monitor, GI consult, IV fluids 2. Jaundice Monitor 3. Elevated liver enzymes Monitor, daily labs 4. Gallstones Monitor, surgical consult, clear liquid diet, MRCP 5. Benign essential HTN Monitor, antihypertensives Assessment/Plan Subjective: Patient is awake and alert. Objective: Patient was admitted for abdominal pain and jaundice. Patient had elevated liver enzymes. ERCP showed choledocholithiasis as well as cholelithiasis. Patient was seen by GI as well as general surgery they did recommend a tertiary care center transfer due to need of ERCP and possible laparoscopic cholecystectomy. Patient was unable to be discharged today due to a delay in transportation. Plan: Continue current treatment. DC planning for tomorrow. Dietary Evaluation Review Comments: Incorrect height, BMI is higher than 26.5, hypercholesterolemia, advance diet to 2gNa, Lo fat Lo cholesterol after her procedures. Expected Outcomes/Goals: Gradual weight loss,controlled HLD. Plan discussed with: Patient, Other KONRAD PALM NP Oct 08, 2024 18:51
== END 2024-10-08 13:00 | disposition short-term general hospital (02) ==
LOC: ER 06:14 → OVERFLOW 11:23 → EDBD 11:23 → WEST WING 20:40
PROVIDERS: ADMIT Nurse Practitioner; ATTEND Nurse Practitioner
DX: K80.70 Calculus of gallbladder and bile duct without cholecystitis without obstruction (principal); K76.0 Fatty (change of) liver, not elsewhere classified; E78.00 Pure hypercholesterolemia, unspecified; I10 Essential (primary) hypertension; N39.0 Urinary tract infection, site not specified; N28.1 Cyst of kidney, acquired; Z79.899 Other long term (current) drug therapy
CPT/HCPCS: 36415; 71045; 74181; 76705; 80053; 80061; 81001; 83036; 83690; 84702; 85025; 85610; 96365; 96375; 99291; G0378; J2470